=== PATIENT | male | born 1985 | race Two or more races ===

== ENCOUNTER 2016-05-30 10:04 | Emergency (ER) | payer OTHER ==
--- NOTE | 2016-05-30 10:42 | RAD ---
ANKLE-RIGHT 3 VIEW History: Jumped out of a three-story hotel room. Comparison: None. Findings: Views of the right ankle were obtained. Images demonstrate evidence of an obliquely oriented lucency extending through the anterior to midportion of the calcaneus suggestive of a calcaneal fracture. The mortise joint remains intact. The talar dome contour is within expected. No focal soft tissue abnormalities are seen. Impression: 1. An obliquely oriented fracture of the anterior to midportion of the calcaneus.
--- NOTE | 2016-05-30 10:43 | RAD ---
FOOT RIGHT 3 VIEWS HISTORY: Jumped out of three-story hotel room. COMPARISONS: None. FINDINGS: 3 views of the right foot were performed demonstrating normal bony mineralization. There is evidence of an obliquely oriented fracture involving the anterior to midportion of the calcaneus. The calcaneal angle remains intact. The remaining osseous structures are appropriate. The joint spaces are well-maintained. No focal soft tissue abnormalities are seen. IMPRESSION: 1. An obliquely oriented fracture of the anterior to midportion of the calcaneus.
--- NOTE | 2016-05-30 10:44 | RAD ---
ANKLE-LEFT 3 VIEW History: Jumped out of a three-story hotel room. Comparison: None. Findings: Views of the left ankle were obtained. 3 views of the left ankle were performed demonstrating intact osseous structures. There is a well-corticated density seen distal to the tip of the fibula, likely reflective of a secondary ossification center or residua of chronic trauma. The mortise joint remains intact. The talar dome contour is within expected. There is a radiopaque metallic density seen within the soft tissues projecting anterior to the distal tibia. Impression: 1. No definitive acute fracture visualized. 2. A well-corticated ossific density distal to the fibula, likely residua of chronic trauma or a secondary ossification center. 3. A small radiopaque foreign body within the soft tissues anterior to the distal tibia.
--- NOTE | 2016-05-30 10:46 | RAD ---
FOOT LEFT 3 VIEWS HISTORY: Jumped out of a three-story hotel room. COMPARISONS: None. FINDINGS: 3 views of the left foot were performed demonstrating normal bony mineralization. On the lateral view, there is a questionable lucency involving the posterior/plantar aspect of the calcaneus. The calcaneal angle remains intact. The joint spaces are well-maintained. No focal soft tissue abnormalities are seen. IMPRESSION: 1. A questionable fracture involving the posterior/plantar aspect of the calcaneus.
[2016-05-30] MEDS ORDERED: HYDROCODONE/ACETAMINOPHEN 5/325MG TABLET ONE (11:22)
== END 2016-05-30 12:53 | disposition home or self-care (01) ==
LOC: ED 10:04
DX: S92.002A Unspecified fracture of left calcaneus, initial encounter for closed fracture (principal); S92.001A Unspecified fracture of right calcaneus, initial encounter for closed fracture; W13.0XXA Fall from, out of or through balcony, initial encounter; Y92.9 Unspecified place or not applicable
CPT/HCPCS: 73610 ×2; 73630 ×2; 99283 ×2; 29515; A9270